=== PATIENT | male | born 1970 | race Caucasian/White ===

== ENCOUNTER 2023-07-27 14:00 | Emergency (ER) | payer MEDICARE, SELFPAY ==
[2023-07-27 14:05] VITALS: BP 149/113
--- NOTE | 2023-07-27 14:12 | ED.GENMED ---
History of Present Illness
General
Chief Complaint: Abdominal Pain
Source: patient
Exam Limitations: none
Time Seen by Provider: 07/27/23 14:12
Nursing documentation reviewed up to this point in time: agreed with
Travel History
Have you had any contact with someone who has COVID-19?: No
Do you have any symptoms of coronavirus? Fever > 100 degrees, chills, cough, shortness of breath, sore throat, loss of taste or smell, muscle aches, or headache?: No
History of Present Illness
History of Present Illness:
53 yr old male presents to the ED with complaints of abdominal pain. Pt was awoke by left sided abd pain at 3 am. He has had persistent pain since with nausea and vomiting. He does mention that on Friday he noticed that his urine was rust
colored. He reports today he had an episode of loosing control of his urine while trying to walk to the bathroom. He reports he couldn't' hold it.
He has not had an colonoscopy.
Review of Systems
Review of Systems
Allergies reviewed?: Yes
All Other Systems: ROS reviewed and negative except as documented in HPI and ROS
Constitutional: Reports no symptoms; Denies fever, fatigue or chills
EENT: Reports no symptoms
Respiratory: Reports no symptoms
Cardiac: Reports no symptoms
ABD/GI: Reports abdominal pain, nausea and vomiting
: Reports urgency
Musculoskeletal: Reports no symptoms
Skin: Reports no symptoms
Neurological: Reports no symptoms
Psychiatric: Reports no symptoms
Phy Exam
General Physical Exam
General Presentation: no apparent distress
General age: appears stated age
General Skin: warm and dry
General Habitus: normal
General Mental: alert
General Hydration: appears well hydrated
Gastrointestinal Exam
Gastrointestinal Exam: soft and other (tender left sided abdominal region )
Neurological Exam
Neurological Exam: alert and oriented x3
Musculoskeletal Exam
Musculoskeletal Exam: full ROM
Skin Exam
Skin Exam: normal color and warm/dry
Psychiatric Exam
Psychiatric Exam: normal mood/affect
Course
Orders/Labs/Results
Orders:
Orders
07/27/23 14:24
Complete Blood Count/With Diff Urgent
Comprehensive Metabolic Panel Urgent
Lipase Urgent
Urinalysis Reflex To Culture Urgent
Date Specimen was Collected: 07/27/23
Time Specimen was Collected: 14:19
Urine Microscopic Reflex Cult Urgent
07/27/23 14:25
CT Abd/Pel (IV only)-DH only Urgent
Comment:
Reason For Exam: left sided abd pain
07/27/23 14:31
Ketorolac [Toradol] 15 mg IV NOW STA
Ondansetron Injectable [Zofran] 4 mg IV NOW STA
07/27/23 14:33
0.9% Sodium Chloride 1000 ml [Nss] 1,000 ml IV BOLUS
07/27/23 15:19
Electrocardiogram (*1) Stat
Reason for Study: Other
Other Reason for Exam: chest pain
EKG- Treatment ONCE
07/27/23 16:21
HYDROmorphone [Dilaudid] 0.5 mg IV NOW STA
07/27/23 16:40
Vital Signs- Treatment ONCE
Frequency: Once
Abnormal Lab Results
07/27/23
14:24
WBC 14.7 H 10^3/uL
(4.8-10.8)
MPV 11.1 H fL
(7.4-10.4)
Abs Immat Gran (auto) 0.1 H 10^3/uL
(0-0.05)
Absolute Neuts (auto) 12.7 H 10^3/uL
(1.4-6.5)
Absolute Lymphs (auto) 0.9 L 10^3/uL
(1.2-3.4)
Absolute Monos (auto) 1.0 H 10^3/uL
(0.1-0.6)
Neutrophils % 86.8 H %
(42.2-75.2)
Lymphocytes % 6.0 L %
(20.5-51.1)
Sodium 134 L mmol/L
(135-145)
Glucose 113 H mg/dl
(70-99)
Urine Ketones Trace A
(Negative)
Ur Occult Blood Reflex Trace A
(Negative)
Urine RBC 7-10 A /HPF
(0-2)
07/27/23 14:24
07/27/23 14:24
Vital Signs
Initial and Last Documented VS:
Initial Vital Signs
Temp Pulse Resp BP Pulse Ox
98.5 F 107 18 149/113 99
07/27/23 14:05 07/27/23 14:05 07/27/23 14:05 07/27/23 14:05 07/27/23 14:05
Last Documented Vital Signs
Temp Pulse Resp BP Pulse Ox
98.5 F 105 20 168/89 98
07/27/23 14:05 07/27/23 16:49 07/27/23 16:49 07/27/23 16:49 07/27/23 16:49
MDM/Problems Addressed
Differential Diagnosis Includes:
Not limited to renal colic, pyelonephritis UTI diverticulitis pancreatitis
MDM/Problems Addressed:
Patient is a 51-year-old male who presents to the ER with left-sided abdominal pain that woke him up at 3 AM. He reports he did have this episode a week and a half ago but resolved on its own. He also mention that on Friday he had some urinary
urgency and noticed that his urine seemed rust colored. Today he had an episode where he lost control of his urine and was unable to make it to the bathroom in time. His primary complaint is pain to the left abdomen but he does feel in his left
back. He is mildly tender on exam concern for diverticulitis versus renal colic. Patient vomited multiple times. Will give patient Toradol fluids and Zofran and obtain CT.
1638: Patient was feeling better from Toradol now with increased pain will give dose of Dilaudid. CAT scan reviewed with patient does show a 4 mm calculus at the left UVJ with obstructive uropathy there is an additional 2 mm nonobstructing calyceal
distal left ureter approximately 2 cm distance from the UVJ there is a right renal 5 mm and 2 mm nonobstructive calculi. Will make more comfortable and plan for discharge home with Flomax pain medication strainer and outpatient urology follow
1738: Narcotic medicine already printed to patient [facility] where he lives however he is presents today with significant other and will need another prescription sent to 24-hour [facility] pharmacy locally will send now.
[place] patient does report he has chronic pain and has a pain specialist at [facility]. He last had prescription for narcotics filled June 11 for 30 days. with new onset of kidney stone new script as documented above sent to 24 hr
pharmacy
*Radiology
Radiology exam reviewed: radiology read reviewed (4 mm calculus at the Left UVJ ; additional 2 mm nonobstructing calculus in the distal left ureter)
*Pulse Oximetry
Patient hypoxic: no
*Critical Care Note
Total Time (30-74mins, 75-104mins- exclusive of procedures): Not Applicable
ED Attending Note
-
Portions of this chart may have been created with voice recognition software.� Occasional wrong word or��sound alike� substitutions may have occurred due to the inherent limitations of voice recognition software.
Discharge Plan
Departure
Patient Disposition: Home (Routine Discharge)
Date of Disposition: 07/27/23
Time of Disposition: 18:17
Patient with high blood pressure during this ER visit?: Yes
Condition: Fair
Covid-19: Not Applicable
Discharge Problem:
Renal colic
Instructions: Renal Colic (DC)
Prescriptions:
New
tamsulosin [Flomax] 0.4 mg capsule
0.4 mg PO DAILY Qty: 7 0RF
hydrocodone-acetaminophen 5-325 mg tablet
1 tab PO Q6H PRN (Reason: Pain) Qty: 10 0RF
Referrals:
Jose Can MD [Active] -
PRIVATE,PHYSICIAN [Family Provider] -
Activity Restrictions/Additional Instructions:
Stay well hydrated.
Ibuprofen 600 mg by mouth by mouth every 8 hours with food however if needed a pain medication was sent to pharmacy take as directed. This medication will cause drowsiness no driving or drinking alcohol while taking this medication. This
medication may cause constipation please take [id number] stool softener.
In addition please take Flomax which is prescribed once daily for the next 7 days
Both of these medications were sent to the pharmacy.
Call urology tomorrow for appointment next several days return if any worsening pain nausea vomiting fever chills
Interventions
Interventions:
*General Assessment Last Done: 07/27/23 14:05
*Neglect/Abuse Screening Last Done: 07/27/23 14:17
*ED COVID-19 Vaccine History Last Done: 07/27/23 14:05
AN-Wdetid-Povumvsapc Assessment Last Done: 07/27/23 15:36
[2023-07-27 14:17] VITALS: BMI 30.3
[2023-07-27] MEDS: ZOFRAN 4 MG IV (14:33)
[2023-07-27] MEDS: TORADOL 15 MG IV (14:33)
[2023-07-27 14:35] LABS: % Basophils 0.3 % (0-2); % Immature Granulocytes 0.4 % (0-0.5); % Monocytes 6.5 % (1.7-9.3); % Neutrophils 86.8 % (42.2-75.2); Absolute Basophils 0.1 10^3/uL (0-0.2); Absolute Immature Granulocytes 0.1 10^3/uL (0-0.05); Absolute Lymphocytes 0.9 10^3/uL (1.2-3.4); Absolute Neutrophils 12.7 10^3/uL (1.4-6.5); Hematocrit 47.1 % (39.0-52.0); Hemoglobin 17.2 g/dL (13.0-18.0); Mean Corp Hgb Conc. 36.5 g/dL (33.0-37.0); Mean Corpuscular Hgb 29.6 pg (27.0-31.0); Mean Corpuscular Volume 81.1 fL (80.0-94.0); Mean Platelet Volume 11.1 fL (7.4-10.4); Nucleated Red Blood Cells % 0 % (-); Platelet Count 221 10^3/uL (130-400); Red Blood Cell Count 5.81 10^6/uL (4.70-6.10); Red Cell Dist. Width 12.8 % (11.5-14.5); White Blood Cell Count 14.7 10^3/uL (4.8-10.8)
[2023-07-27 14:41] LABS: Urine Albumin Negative (Neg - Trace); Urine Bilirubin Negative (Negative); Urine Character Clear (Clear); Urine Color Yellow; Urine Glucose Negative (Negative); Urine Ketone Trace (Negative); Urine Leukocyte Negative (Negative); Urine Nitrite Negative (Negative); Urine Occult Blood Trace (Negative); Urine Urobilinogen Negative (Neg - 1+)
[2023-07-27 14:44] LABS: ALT (SGPT) 33 U/L (0-50); AST (SGOT) 32 U/L (17-59); Albumin 4.7 g/dl (3.5-5.0); Alkaline Phosphatase 102 U/L (38-126); Blood Urea Nitrogen 15 mg/dl (9-20); Calcium 9.5 mg/dl (8.4-10.2); Carbon Dioxide 25 mmol/L (22-30); Chloride 101 mmol/L (98-107); Estimated Creatinine Clearance 81 ml/min; Glucose 113 mg/dl (70-99); Lipase 69 U/L (23-300); Potassium 4.2 mmol/L (3.5-5.1); Sodium 134 mmol/L (135-145); Total Bilirubin 0.8 mg/dl (0.2-1.3); Total Protein 7.7 g/dl (6.3-8.2); eGFR > 60.00
[2023-07-27 14:49] LABS: Urine White Cell None Seen /HPF (0-5)
[2023-07-27] MEDS: NSS 1000 IV (14:58)
[2023-07-27] MEDS: DILAUDID 0.5 MG IV (16:45)
[2023-07-27 16:49] VITALS: BP 168/89
== END 2023-07-27 18:25 | disposition home or self-care (01) ==
LOC: EMR 14:00
PROVIDERS: Nurse Practitioner; EMERGENCY PHYSICIAN Student in an Organized Health Care Education/Training Program
DX: N23 Unspecified renal colic (principal); R03.0 Elevated blood-pressure reading, without diagnosis of hypertension
CPT/HCPCS: 99285; 96374; 96375 ×2; 96361; 74177; 80053; 81003; 81015; 83690; 85025; 93005; Q9967

== ENCOUNTER 2023-08-28 13:55 | Emergency (ER) | payer MEDICARE, SELFPAY ==
[2023-08-28 13:56] VITALS: BP 140/99
[2023-08-28] MEDS: OMNIPAQUE 50 ML PO (15:28)
[2023-08-28] MEDS: NSS 1000 IV (15:29)
--- NOTE | 2023-08-28 15:30 | ED.GENMED ---
History of Present Illness
General
Chief Complaint: Abdominal Pain
Source: patient
Exam Limitations: none
Time Seen by Provider: 08/28/23 15:07
Nursing documentation reviewed up to this point in time: agreed with
Travel History
Have you had any contact with someone who has COVID-19?: No
Do you have any symptoms of coronavirus? Fever > 100 degrees, chills, cough, shortness of breath, sore throat, loss of taste or smell, muscle aches, or headache?: No
History of Present Illness
History of Present Illness:
Patient presents ED secondary to persistent lower abdominal pain over the past 5 days, along with decreased appetite. Abdominal pain described as crampy, nonradiating, without any alleviating or exacerbating factors. Denies fever or chills.
Denies vomiting or diarrhea. Denies trauma. Denies difficulty urination. Of note, patient was seen in ED last month and diagnosed with kidney stones. Since then, patient states that he has passed multiple kidney stones spontaneously. In
addition, patient states that his pain today is completely different from what he experienced last month.
Review of Systems
Review of Systems
Allergies reviewed?: Yes
All Other Systems: ROS reviewed and negative except as documented in HPI and ROS
Constitutional: Reports no symptoms; Denies fever or chills
ABD/GI: Reports abdominal pain and nausea; Denies vomiting or diarrhea
: Reports no symptoms; Denies frequency, flank pain or difficulty voiding
Musculoskeletal: Reports no symptoms
Skin: Reports no symptoms
Neurological: Reports no symptoms
Phy Exam
Physical Exam
Physical Exam:
Physical Exam
General: mild distress, not acutely ill. afebrile
Head: nc/at. eomi
Neck: supple. normal range of motion.
Abdomen: normal bowel sounds. mild RLQ tenderness, without guarding/rebound. no distention
Neuro: alert and oriented. no focal neurological deficits
Skin: no rash
Psychiatric: well kept. interactive and cooperative
Extremities: no edema. no calf tenderness.
Course
Orders/Labs/Results
Orders:
Orders
08/28/23 15:12
CT Abd/pel W Iv And Oral Contr Urgent
Comment:
Reason For Exam: RLQ pain
0.9% Sodium Chloride 1000 ml [Nss] 1,000 ml IV BOLUS
Iohexol [Omnipaque] See Protocol PO NOW STA
08/28/23 15:28
Basic Metabolic Panel Urgent
Complete Blood Count/With Diff Urgent
Urinalysis Reflex To Culture Urgent
Date Specimen was Collected: 08/28/23
Time Specimen was Collected: 15:26
08/28/23 19:54
Ketorolac [Toradol] 30 mg IV NOW STA
Abnormal Lab Results
08/28/23
15:28
MPV 11.7 H fL
(7.4-10.4)
Abs Immat Gran (auto) 0.1 H 10^3/uL
(0-0.05)
Immature Gran % 1.2 H %
(0-0.5)
Lymphocytes % 17.5 L %
(20.5-51.1)
Glucose 170 H mg/dl
(70-99)
08/28/23 15:28
08/28/23 15:28
Vital Signs
Initial and Last Documented VS:
Initial Vital Signs
Temp Pulse Resp BP Pulse Ox
97.8 F 106 18 140/99 99
08/28/23 13:56 08/28/23 13:56 08/28/23 13:56 08/28/23 13:56 08/28/23 13:56
Last Documented Vital Signs
Temp Pulse Resp BP Pulse Ox
97.8 F 106 18 140/99 99
08/28/23 13:56 08/28/23 13:56 08/28/23 13:56 08/28/23 13:56 08/28/23 13:56
MDM/Problems Addressed
MDM/Problems Addressed:
History, exam, and CT scan consistent with renal colic. Otherwise, patient remains afebrile, hemodynamically stable, and nontoxic-appearing. Patient will be discharged home in stable condition, to the care of his spouse, with recommendation to
follow-up with his urologist, which is already scheduled for September 05. Advised to return to ED with worsening symptoms, i.e. fever/worsening pain/inability to urinate.
*Critical Care Note
Total Time (30-74mins, 75-104mins- exclusive of procedures): Not Applicable
ED Attending Note
-
Portions of this chart may have been created with voice recognition software.� Occasional wrong word or��sound alike� substitutions may have occurred due to the inherent limitations of voice recognition software.
Discharge Plan
Departure
Patient Disposition: Home (Routine Discharge)
Date of Disposition: 08/28/23
Time of Disposition: 19:56
Patient with high blood pressure during this ER visit?: Yes
Discharge Problem:
Renal colic
Instructions: Renal Colic (DC)
Prescriptions:
New
tamsulosin [Flomax] 0.4 mg Capsule
0.4 mg PO DAILY Qty: 7 0RF
ketorolac 10 mg tablet
10 mg PO Q8H PRN (Reason: Pain) Qty: 12 0RF
Rx Instructions:
maximum total duration of 5 days from all oral, intranasal, or parenteral formulations
No Action
tamsulosin [Flomax] 0.4 mg capsule
0.4 mg PO DAILY Qty: 7 0RF
hydrocodone-acetaminophen 5-325 mg tablet
1 tab PO Q6H PRN (Reason: Pain) Qty: 10 0RF
Referrals:
UNKNOWN - PT DOES,NOT KNOW [Family Provider] -
Activity Restrictions/Additional Instructions:
As discussed, please follow up with your urologist @ [facility] for further evaluation and treatment. Please return to nearest ED with worsening symptoms, i.e. fever/inability to urinate/worsening pain. Your prescription has been sent electronically to
[facility] pharmacy in [place].
Interventions
Interventions:
*Risk Screen - Suicide Last Done: 08/28/23 13:56
*General Assessment Last Done: 08/28/23 13:56
*Neglect/Abuse Screening Last Done: 08/28/23 13:56
ED- Fall Risk Assessment Last Done: 08/28/23 15:38
*ED COVID-19 Vaccine History Last Done: 08/28/23 13:56
*Nursing Disposition Last Done: 08/28/23 20:05
WQ-Suyqyi-Degfgytfai Assessment Last Done: 08/28/23 15:38
Discharge Date and Time
Discharge Date/Time: 08/28/23 20:06
Print Language: VENEZUELAN
[2023-08-28 15:59] LABS: % Basophils 0.4 % (0-2); % Eosinophils 1.9 % (0-6); % Immature Granulocytes 1.2 % (0-0.5); % Lymphocytes 17.5 % (20.5-51.1); % Monocytes 5.9 % (1.7-9.3); % Neutrophils 73.1 % (42.2-75.2); Absolute Eosinophils 0.1 10^3/uL (0-0.7); Absolute Immature Granulocytes 0.1 10^3/uL (0-0.05); Absolute Lymphocytes 1.2 10^3/uL (1.2-3.4); Absolute Monocytes 0.4 10^3/uL (0.1-0.6); Hematocrit 44.9 % (39.0-52.0); Hemoglobin 15.6 g/dL (13.0-18.0); Mean Corp Hgb Conc. 34.7 g/dL (33.0-37.0); Mean Corpuscular Hgb 29.1 pg (27.0-31.0); Mean Corpuscular Volume 83.8 fL (80.0-94.0); Mean Platelet Volume 11.7 fL (7.4-10.4); Nucleated Red Blood Cells % 0 % (-); Platelet Count 187 10^3/uL (130-400); Red Blood Cell Count 5.36 10^6/uL (4.70-6.10); Red Cell Dist. Width 12.4 % (11.5-14.5); White Blood Cell Count 6.8 10^3/uL (4.8-10.8)
[2023-08-28 16:07] LABS: Urine Albumin Negative (Neg - Trace); Urine Bilirubin Negative (Negative); Urine Character Clear (Clear); Urine Color Yellow; Urine Glucose Negative (Negative); Urine Ketone Negative (Negative); Urine Leukocyte Negative (Negative); Urine Nitrite Negative (Negative); Urine Occult Blood Negative (Negative); Urine Urobilinogen Negative (Neg - 1+)
[2023-08-28 16:15] LABS: Blood Urea Nitrogen 15 mg/dl (9-20); Calcium 9.3 mg/dl (8.4-10.2); Carbon Dioxide 25 mmol/L (22-30); Chloride 100 mmol/L (98-107); Glucose 170 mg/dl (70-99); Potassium 3.7 mmol/L (3.5-5.1); Sodium 135 mmol/L (135-145); eGFR > 60.00
[2023-08-28] MEDS: TORADOL 30 MG IV (20:02)
== END 2023-08-28 20:06 | disposition home or self-care (01) ==
LOC: EMR 13:55
PROVIDERS: EMERGENCY PHYSICIAN Emergency Medicine
DX: N23 Unspecified renal colic (principal); I10 Essential (primary) hypertension
CPT/HCPCS: 99285; 96374; 96361 ×3; 74177; 80048; 81003; 85025; Q9967